=== PATIENT | male | born 1970 | race Caucasian/White ===

== ENCOUNTER 2017-09-10 18:19 | Emergency (ER) | payer OTHER ==
--- NOTE | 2017-09-10 18:46 | PDOC ---
Rapid Medical Evaluation Time Seen by Provider: 09/10/17 18:41 Medical Evaluation: Allergies Allergy/AdvReac Type Severity Reaction Status Date / Time No Known Allergies Allergy Verified 09/10/17 18:42 09/10/17 18:42 Pt with c/o: dental pain x 3-4 months, worsening in severity, no fever, motrin and tylenol alleviates pain but states does not have the money to pay for it Pt on brief exam:no visual decay/abscess. no excessive grinding pattern noted Pt ordered for: none Pt to proceed to the ED Discharge Disposition - Diagnosis Pain, dental - Referrals - Patient Instructions - Post Discharge Activity
[2017-09-10 18:51] VITALS: BP 122/69; PULSE 74; TEMP 99.1; BMI 26.9
[2017-09-10] MEDS ORDERED: KETOROLAC TROMETHAMINE 30 MG/1 ML VIAL IM ONE (19:33)
[2017-09-10] MEDS ORDERED: KETOROLAC TROMETHAMINE 30 MG/1 ML VIAL ONE (19:37)
--- NOTE | 2017-09-10 19:38 | PDOC ---
History of Present Illness - General Chief Complaint: Pain, Acute Stated Complaint: PAIN Time Seen by Provider: 09/10/17 18:41 History Source: Patient Exam Limitations: No Limitations - History of Present Illness Initial Comments: 09/10/17 19:31 46-year-old man with past medical history of schizoaffective disorder who presents to the emergency department with acute on chronic dental pain. Patient states she is seen a dentist many years ago but was scared off when told he was continued extensive dental surgery. Patient has been controlling his pain with [id number] Tylenol and Motrin with good relief. The pain now has become more intense and he states he cannot afford to pay for his Tylenol or Motrin [id number]. States the pain starts in teeth 2, 15,17 and 31. Past History - Past Medical History Allergies/Adverse Reactions: Allergies Allergy/AdvReac Type Severity Reaction Status Date / Time diphenhydramine Allergy Verified 09/10/17 18:42 [From Benadryl] haloperidol [From Haldol] Allergy Verified 09/10/17 18:42 Home Medications: Ambulatory Orders Atorvastatin Ca [Lipitor] 40 mg PO HS 09/10/17 Clozapine [Clozaril] 200 mg PO ASDIR 09/10/17 Divalproex [Depakote -] 1,000 mg PO DAILY 09/10/17 Hydroxyzine Pamoate [Vistaril -] 25 mg PO TID 09/10/17 Levothyroxine [Synthroid -] 75 mcg PO DAILY 09/10/17 Lisinopril 20 mg PO ASDIR 09/10/17 Metformin HCl 500 mg PO BID 09/10/17 Penicillin V Potassium [Pen Vee K -] 500 mg PO TID #21 tablet 09/10/17 Tramadol HCl [Ultram -] 50 mg PO Q6H PRN #8 tablet MDD 4 09/10/17 CVA: No COPD: No Diabetes: Yes (IDDM) HTN: Yes Hypercholesterolemia: Yes Psychiatric Problems: Yes (ANXIETY) Thyroid Disease: Yes (HYPOTHRDOISM) - Immunization History Immunization Up to Date: Yes - Suicide/Smoking/Psychosocial Hx Smoking History: Never smoked Number of Cigarettes Smoked Daily: 10 Information on smoking cessation initiated: No Hx Alcohol Use: No Drug/Substance Use Hx: No Substance Use Type: None Review of Systems - Review of Systems Able to Perform ROS?: Yes Is the patient limited Burmese proficient: No Constitutional: No: Symptoms Reported HEENTM: Yes: See HPI Respiratory: No: Symptoms reported Cardiac (ROS): No: Symptoms Reported ABD/GI: No: Symptoms Reported : No: Symptoms Reported Musculoskeletal: No: Symptoms Reported Integumentary: No: Symptoms Reported Neurological: No: Symptoms reported Psychiatric: No: Anxiety, Depression, Mood Swings, Change in Appetite Endocrine: No: Symptoms Reported Hematologic/Lymphatic: No: Symptoms Reported *Physical Exam - Vital Signs Last Vital Signs Temp Pulse Resp BP Pulse Ox 99.1 F 74 18 122/69 97 09/10/17 18:43 09/10/17 18:43 09/10/17 18:43 09/10/17 18:43 09/10/17 18:43 - Physical Exam General Appearance: Yes: Appropriately Dressed. No: Apparent Distress HEENT: positive: DARNELL, TMs Normal, Other (No obvious dental caries noted. Tenderness to the lingual side of teeth 2, 15, 17, 31. No abscesses palpated. No drainage or discharge noted with palpation of gingival surfaces. Gingiva pink with no sign of infection.) Neck: positive: Trachea midline, Supple Respiratory/Chest: positive: Lungs Clear. negative: Respiratory Distress, Accessory Muscle Use Cardiovascular: positive: Regular Rhythm, Regular Rate Gastrointestinal/Abdominal: positive: Soft. negative: Tender Musculoskeletal: positive: Normal Inspection Extremity: positive: Normal Inspection Integumentary: positive: Normal Color Neurologic: positive: Fully Oriented, Alert, Normal Mood/Affect, Normal Response Medical Decision Making - Medical Decision Making 09/10/17 19:36 A/P: 46-year-old man with history of schizoaffective disorder with acute exacerbation of chronic dental pain in teeth 2, 15, 17, 31. No obvious dental caries noted. Gingival without signs and symptoms of infection. Tenderness noted to the lingual surface of the gingiva on teeth noted. No abscess palpated. Toradol 30 modems I am now Prescription for Pen-Vee K Prescription for tramadol Referral to [facility] Discharge *DC/Admit/Observation/Transfer Diagnosis at time of Disposition: Pain, dental - Discharge Dispostion Disposition: HOME Condition at time of disposition: Stable Admit: No - Prescriptions Prescriptions: Penicillin V Potassium [Pen Vee K -] 500 mg PO TID #21 tablet Tramadol HCl [Ultram -] 50 mg PO Q6H PRN #8 tablet MDD 4 PRN Reason: Severe Pain - Referrals Referrals: ON STAFF,NOT [Primary Care Provider] - - Patient Instructions Additional Instructions: Take Pen-Vee K 500 mg 3 times a day for the next week or until discontinued by a dentist. Take tramadol 50 mg every 6 hours as needed for severe pain. Go to [facility] at [address] for dental clinic. Please bring proof of income they can adjust fee for service. Return to emergency department for worsening pain, foul taste in her mouth, facial swelling, inability, or any other concerns. Thank you very much for choosing us to provide your emergent healthcare needs. - Post Discharge Activity
== END 2017-09-10 19:47 | disposition home or self-care (01) ==
LOC: JERFT 18:19
PROC: 3E0233Z Introduction of Anti-inflammatory into Muscle, Percutaneous Approach (ICD-10-PCS; principal; 2017-09-10)
DX: K08.89 Other specified disorders of teeth and supporting structures (principal); I10 Essential (primary) hypertension; E11.9 Type 2 diabetes mellitus without complications; Z79.84 Long term (current) use of oral hypoglycemic drugs; E78.00 Pure hypercholesterolemia, unspecified; E03.9 Hypothyroidism, unspecified; F25.9 Schizoaffective disorder, unspecified; F41.9 Anxiety disorder, unspecified
CPT/HCPCS: 96372; 99281-25

== ENCOUNTER 2018-05-05 12:40 | Emergency (ER) | payer OTHER ==
[2018-05-05 12:47] VITALS: BP 114/78; PULSE 72; TEMP 99.3; BMI 24.1
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
--- NOTE | 2018-05-05 17:37 | CON.PSY ---
Psychiatry Consult Chief Complaint: 47 year old male with chronic Psych Illness, receives treatment at [facility]. In clozaril and other psych meds, Patient became homeless few days ago. Symptoms: reports: Anxiety - Previous Psychiatric Treatment Outpatient: Less than 6 mos ago Inpatient: 2 or more prior admissions - Previous Substance Abuse Treatment Outpatient: None Inpatient: None - Reason for Previous Treatment Reason for Previous Treatment: Psychotic Episode - Allergies Allergies: Allergies Allergy/AdvReac Type Severity Reaction Status Date / Time diphenhydramine Allergy Verified 05/05/18 12:44 [From Benadryl] haloperidol [From Haldol] Allergy Verified 05/05/18 12:44 - Current Living Status Usual Living Arrangement: Alone - Current Mental Status Evaluation Appearance: Disheveled Attitude: Guarded - Affect Affect: Constrictive Appropriateness: Appropriate to Content - Mood Mood: Anxious - Speech/Language Expressive: Coherent - Psychomotor Activity Psychomotor Activity: Slowed - Thought Process Thought Process: Intact - Thought Content Hallucinations: Absent Delusions: Absent - Self Perception Self Perception: No Impairment - Cognition Attention: Alert Orientation: Time Memory, Immediate Recall: Intact Memory, Short Term: 2/3 Memory, Remote with Promptin/3 - Concentration Serial Sevens Intact: Yes Simple Calculations Intact: Yes - Abstraction Proverb Interpretation: Intact Judgement: Minimally Impaired - Insight Insight: Intact - Impulse Control Impulse Control: Good Control - Suicidal Ideation Suicidal Ideation: No - Homicidal Ideation Homicidal Ideation: No Assessment/Plan 1) Dischrge from ER, Not suicidal or homicidal at this time. 2) follow up at [facility] in [place]. 3) will go to [facility].
== END 2018-05-05 17:47 | disposition home or self-care (01) ==
LOC: JER 12:40
DX: F25.9 Schizoaffective disorder, unspecified (principal); E11.9 Type 2 diabetes mellitus without complications; I10 Essential (primary) hypertension; F41.9 Anxiety disorder, unspecified; E03.9 Hypothyroidism, unspecified; E78.00 Pure hypercholesterolemia, unspecified
CPT/HCPCS: 99282-25

== ENCOUNTER 2019-08-01 12:43 | Inpatient (IN) | payer SELFPAY ==
[2019-08-01 13:35] VITALS: BMI 27.5
--- NOTE | 2019-08-01 14:52 | HP ---
"COWS - Scale Resting Pulse: 1= TN 81-100 Sweatin= Chills/Flushing Restless Observation: 1= Difficult to Sit Still Pupil Size: 0= Normal to Room Light Bone or Joint Aches: 1= Mild Discomfort Runny Nose/ Eye Tearin= Nasal Congestion GI Upset > 30mins: 1= Stomach Cramp Tremor Observation: 2= Slight Tremor Visible Yawning Observation: 2= >3x During Session Anxiety or Irritability: 1=Feels Anxious/Irritable Goose Flesh Skin: 3=Piloerection COWS Score: 14 CIWA Score Nausea/Vomitin Muscle Tremors: 4-Moderate,w/Arms Extend Anxiety: 4-Mod. Anxious/Guarded Agitation: 1-Slight > Activity Paroxysmal Sweats: 1-Minimal Palms Moist Orientation: 1-Uncertain about Date Tacttile Disturbances: 1-Very Mild Itch/Numbness Auditory Disturbances: 1-Very Mild Visual Disturbances: 1-Very Mild Sensitivity Headache: 2-Mild CIWA-Ar Total Score: 18 - Admission Criteria OASAS Guidelines: Admission for Medically Managed Detox: Requires at least one of the followin. CIWA greater than 12 2. Seizures within the past 24 hours 3. Delirium tremens within the past 24 hours 4. Hallucinations within the past 24 hours 5. Acute intervention needed for co occurring medical disorder 6. Acute intervention needed for co occurring psychiatric disorder 7. Severe withdrawal that cannot be handled at a lower level of care (continued vomiting, continued diarrhea, abnormal vital signs) requiring intravenous medication and/or fluids 8. Patient presents the following: CIWA greater than 12 Admission Criteria Met: Admission criteria met Admitting History and Physical - Admission History Source: Patient - Past Medical History Cardiovascular: Yes: HTN, Hyperlipdemia Psych: Yes: Addictions, Depression, Schizophrenia - Smoking History Smoking history: Current every day smoker Have you smoked in the past 12 months: Yes Aproximately how many cigarettes per day: 20 - Alcohol/Substance Use Hx Alcohol Use: Yes History of Substance Use: reports: Heroin - Social History Usual Living Arrangement: Yes: Alone, Other (jail) ADL: Support Services Admission ROS BHS - HPI Chief Complaint: I want to get this under control, get it all out of my system Allergies/Adverse Reactions: Allergies Allergy/AdvReac Type Severity Reaction Status Date / Time diphenhydramine Allergy Verified 08/01/19 13:19 [From Benadryl] haloperidol [From Haldol] Allergy Verified 08/01/19 13:19 History of Present Illness: 48 yo gentleman here for detox from opiates and alcohol - last time in detox was 2001. Denies seizures or overdose but does have history of black outs. States he has been using heroin for about a year - never on MMTP or suboxone. Patient lives in a jail. He sees psych, is on disability for schizoaffective disorder. Patient drinks starting in the morning or he gets very sick with withdrawal symptoms. No recent ED visits. He brings himself here on the recommendation of a friend. Longest time sober was 9 years - states he went to college and had a job - thought he was okay, stopped going to meetings and relapsed. [facility] Search Terms: elyse huang, 1970 Search Date: 08/01/2019 02:47:26 PM The Drug Utilization Report below displays all of the controlled substance prescriptions, if any, that your patient has filled in the last twelve months. The information displayed on this report is compiled from pharmacy submissions to the Department, and accurately reflects the information as submitted by the pharmacies. This report was requested by: Alysa Penny | Reference #: [id number] Others' Prescriptions Patient Name: Elyse Huang Date: 1970 Address: [address] [place] [address] [address] [place] [address] Sex: Male Rx Written Rx Dispensed Drug Quantity Days Supply Prescriber Name 07/07/2019 07/13/2019 zolpidem tartrate 5 mg tablet 30 30 , 06/12/2019 06/15/2019 zolpidem tartrate 5 mg tablet 30 30 , Patient Name: Elyse Huang Date: 1970 Address: [address] [place] [address] [address] [place] [address] Sex: Male Rx Written Rx Dispensed Drug Quantity Days Supply Prescriber Name 05/12/2019 05/18/2019 zolpidem tartrate 5 mg tablet 30 30 , La04/14/2019 04/16/2019 zolpidem tartrate 5 mg tablet 30 30 , Exam Limitations: No Limitations - Ebola screening Have you traveled outside of the country in the last 21 days: No (N) Have you had contact with anyone from an Ebola affected area: No Do you have a fever: No - Review of Systems Constitutional: Malaise, Changes in sleep, Weakness EENT: reports: Nose Congestion Respiratory: reports: No Symptoms reported Cardiac: reports: No Symptoms Reported GI: reports: Nausea, Abdominal cramping : reports: No Symptoms Reported Musculoskeletal: reports: Back Pain, Muscle Pain Integumentary: reports: No Symptoms Reported Neuro: reports: Headache, Tremors, Weakness Endocrine: reports: No Symptoms Reported Hematology: reports: No Symptoms Reported Psychiatric: reports: Judgement Intact, Mood/Affect Appropiate, Orientated x3, Anxious Other Systems: Reviewed and Negative Patient History - Patient Medical History Hx Asthma: No Hx Chronic Obstructive Pulmonary Disease (COPD): No Hx Cancer: No Hx Cardiac Disorders: No Hx Hypertension: Yes Hx Hypercholesterolemia: Yes Hx Pacemaker: No HX Cerebrovascular Accident: No Hx Seizures: No Hx Diabetes: Yes (type II) Hx Gastrointestinal Disorders: Yes (GERD) Hx Liver Disease: No Hx Genitourinary Disorders: No Hx Sexually Transmitted Disorders: No Hx Renal Disease (ESRD): No Hx Thyroid Disease: Yes (HYPOTHRDOISM) Hx Human Immunodeficiency Virus (HIV): No Hx Hepatitis C: No Hx Depression: Yes Hx Suicide Attempt: No (denies) Hx Bipolar Disorder: No Hx Schizophrenia: Yes (schizoaffective - hx meds - in ED several times, multiple hospitalizations) - Patient Surgical History Past Surgical History: No - PPD History Previous Implant?: Yes Documented Results: Negative w/o proof Implanted On Prior R Admission?: No PPD to be Administered?: Yes - Reproductive History Patient is a Female of Child Bearing Age (11 -55 yrs old): No - Smoking Cessation Smoking history: Current every day smoker Have you smoked in the past 12 months: Yes Aproximately how many cigarettes per day: 20 Hx Chewing Tobacco Use: No Initiated information on smoking cessation: Yes 'Breaking Loose' booklet given: 08/01/19 (give on floor) - Substance & Tx. History Hx Alcohol Use: Yes Hx Substance Use: Yes Substance Use Type: Alcohol Hx Substance Use Treatment: Yes (detox) - Substances abused Alcohol Substance route: Oral Frequency: Daily Amount used: 6-7 (25ounce) beer Age of first use: 16 Date of last use: 08/01/19 Heroin Substance route: Inhalation Frequency: 3-6 times per week Amount used: 4 bags/daily ($10 bag) Age of first use: 31 Date of last use: 07/31/19 Admission Physical Exam [facility] - Vital Signs Vital Signs: Vital Signs - 24 hr 08/01/19 13:26 Temperature 98 F Pulse Rate 87 Respiratory 18 Rate Blood Pressure 129/80 - Physical General Appearance: Yes: Nourished, Appropriately Dressed, Moderate Distress, Tremorous, Anxious HEENTM: Yes: EOMI, Hearing grossly Normal, Normocephalic, Normal Voice, Pharynx Normal, Other (missing front toothd) Respiratory: Yes: Normal Breath Sounds, No Respiratory Distress Neck: Yes: No masses,lesions,Nodules, Supple Breast: Yes: Breasts Symetrical Cardiology: Yes: Regular Rhythm, Regular Rate Abdominal: Yes: Flat, Soft Genitourinary: Yes: Within Normal Limits Back: Yes: Normal Inspection Musculoskeletal: Yes: full range of Motion, Gait Steady, Back pain, Muscle Pain Extremities: Yes: Normal Inspection, Normal Range of Motion, Non-Tender Neurological: Yes: Fully Oriented, Alert, Motor Strength 5/5, Normal Mood/Affect , Normal Response Integumentary: Yes: Normal Color, Warm Lymphatic: Yes: Within Normal Limits - Diagnostic (1) Alcohol dependence with withdrawal, uncomplicated Current Visit: Yes Status: Chronic (2) Opioid dependence with withdrawal Current Visit: Yes Status: Chronic (3) Nicotine dependence Current Visit: Yes Status: Chronic Qualifiers: Nicotine product type: cigarettes Substance use status: uncomplicated Qualified Code(s): F17.210 - Nicotine dependence, cigarettes, uncomplicated (4) Diabetes mellitus treated with oral medication Current Visit: Yes Status: Chronic (5) HTN (hypertension) Current Visit: Yes Status: Chronic Qualifiers: Hypertension type: essential hypertension Qualified Code(s): I10 - Essential (primary) hypertension (6) Hypothyroid Current Visit: Yes Status: Acute Qualifiers: Hypothyroidism type: acquired Qualified Code(s): E03.9 - Hypothyroidism, unspecified (7) Hyperlipemia Current Visit: Yes Status: Acute Qualifiers: Hyperlipidemia type: unspecified Qualified Code(s): E78.5 - Hyperlipidemia , unspecified Cleared for Admission [facility] - Detox or Rehab [facility] Level of Care: Medically Managed Detox Regimen/Protocol: Ativan, Methadone Inpatient Rehab Admission - Rehab Decision to Admit Inpatient rehab admission?: No"
[2019-08-01] MEDS ORDERED: ACETAMINOPHEN 325 MG TABLET (FP) PO PRN ×2 (15:00)
[2019-08-01] MEDS ORDERED: LORazepam 1 MG TABLET PO PRN (15:00)
[2019-08-01] MEDS ORDERED: MAG HYDROX/AL HYDROX/SIMETH 30 ML UNIT-DOSE CUP PO PRN (15:00)
[2019-08-01] MEDS ORDERED: cloNIDine HCL 0.1 MG TABLET PO PRN (15:00)
[2019-08-01] MEDS ORDERED: METHOCARBAMOL 500 MG TABLET PO PRN (15:00)
[2019-08-01] MEDS ORDERED: MAGNESIUM CITRATE 300 ML BOTTLE PO PRN (15:00)
[2019-08-01] MEDS ORDERED: IBUPROFEN 400 MG TABLET (FP) PO PRN (15:00)
[2019-08-01] MEDS ORDERED: LORazepam 2 MG TABLET PO ONE (15:00)
[2019-08-01] MEDS ORDERED: BISMUTH SUBSALICYLATE 524 MG/30 ML UD PO PRN (15:00)
[2019-08-01] MEDS ORDERED: MENTHOL/PHENOL 1 EACH UD MM PRN (15:00)
[2019-08-01] MEDS ORDERED: MAGNESIUM HYDROX 2400MG/30ML ORAL SUSPENSION 30 ML CUP PO PRN (15:00)
[2019-08-01] MEDS ORDERED: METHADONE HCL 10 MG TABLET (FOR DETOX USE ONLY) PO ONE (16:45)
[2019-08-01] MEDS: LISINOPRIL 20 MG TABLET (FP) PO SCH (17:08)
[2019-08-01] MEDS: LORazepam 2 MG TABLET PO SCH ×2 (17:08→22:13)
[2019-08-01] MEDS: NICOTINE 21 MG/24 HOURS TOPICAL PATCH TD SCH (18:20)
[2019-08-01] MEDS ORDERED: MELATONIN 5 MG TABLETS PO PRN (22:00)
[2019-08-01] MEDS ORDERED: DIVALPROEX SODIUM 500 MG TABLET E.C. PO ONE (22:00)
[2019-08-01] MEDS ORDERED: cloZAPine 25 MG TABLET PO ONE (22:00)
[2019-08-01] MEDS: LEVOTHYROXINE NA 25 MCG TABLET (FP) PO SCH (22:13)
[2019-08-01] MEDS: THIAMINE HCL 100 MG TABLET (FP) PO SCH (22:13)
[2019-08-01] MEDS: ATORVASTATIN CA 40 MG TABLET (FP) PO SCH (22:13)
[2019-08-02] MEDS: LORazepam 2 MG TABLET PO SCH ×4 (06:49→22:21)
[2019-08-02] MEDS: metFORMIN HCL 500 MG TABLET (FP) PO SCH ×2 (06:51→18:25)
[2019-08-02] MEDS ORDERED: METHADONE HCL 5 MG TABLET (FOR DETOX USE ONLY) PO ONE (10:00)
[2019-08-02 10:41] LABS: HEMATOCRIT 42.5 % (35.4-49); HEMOGLOBIN 14.3 GM/dL (11.7-16.9); MCH 31.1 pg (25.7-33.7); MCHC 33.8 g/dl (32.0-35.9); MEAN PLT VOLUME 8.9 fl (7.5-11.1); PLATELET COUNT 210 K/MM3 (134-434); RBC 4.61 M/mm3 (4.00-5.60); RDW 14.3 % (11.9-15.9)
[2019-08-02 10:52] LABS: ALBUMIN 3.7 g/dl (3.4-5.0); BILIRUBIN,TOTAL 0.4 mg/dL (0.2-1); BLOOD UREA NITROGEN 10.7 mg/dL (7-18); CALCIUM 8.4 mg/dL (8.5-10.1); CREATININE 0.7 mg/dL (0.55-1.3); POTASSIUM 3.8 mmol/L (3.5-5.1); TOT PROT 6.5 g/dl (6.4-8.2)
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
--- NOTE | 2019-08-02 10:58 | PN ---
S CIWA - CIWA Score Nausea/Vomitin-No Nausea/No Vomiting Muscle Tremors: 2 Anxiety: 3 Agitation: 0-Normal Activity Paroxysmal Sweats: 3 Orientation: 0-Oriented Tacttile Disturbances: 1-Very Mild Itch/Numbness Auditory Disturbances: 0-None Visual Disturbances: 0-None Headache: 2-Mild CIWA-Ar Total Score: 11 BHS COWS - Scale Resting Pulse: 0= CA 80 or Below Sweatin= Beads of Sweat on Face Restless Observation: 1= Difficult to Sit Still Pupil Size: 0= Normal to Room Light Bone or Joint Aches: 2= Severe Diffuse Aches Runny Nose/ Eye Tearin= None GI Upset > 30mins: 0= None Tremor Observation of Outstretched Hands: 2= Slight Tremor Visible Yawning Observation: 1= 1-2x During Session Anxiety or Irritability: 2=Irritable/Anxious Goose Flesh Skin: 0=Smooth Skin COWS Score: 11 S Progress Note (SOAP) Subjective: c/o anxiety, sweats, muscle aches, headache, and shakes. Objective: 08/02/19 10:56 Vital Signs 08/02/19 08/02/19 08/02/19 03:30 05:53 09:49 Temperature 98.2 F 98 F Pulse Rate 61 79 Respiratory 18 18 16 Rate Blood Pressure 102/59 L 122/76 Laboratory Last Values WBC 9.0 K/mm3 (4.0-10.0) 08/02/19 07:35 RBC 4.61 M/mm3 (4.00-5.60) 08/02/19 07:35 Hgb 14.3 GM/dL (11.7-16.9) 08/02/19 07:35 Hct 42.5 % (35.4-49) 08/02/19 07:35 MCV 92.0 fl (80-96) 08/02/19 07:35 MCH 31.1 pg (25.7-33.7) 08/02/19 07:35 MCHC 33.8 g/dl (32.0-35.9) 08/02/19 07:35 RDW 14.3 % (11.9-15.9) 08/02/19 07:35 Plt Count 210 K/MM3 (134-434) 08/02/19 07:35 MPV 8.9 fl (7.5-11.1) 08/02/19 07:35 Sodium 141 mmol/L (136-145) 08/02/19 07:35 Potassium 3.8 mmol/L (3.5-5.1) 08/02/19 07:35 Chloride 106 mmol/L (98-107) 08/02/19 07:35 Carbon Dioxide 31 mmol/L (21-32) 08/02/19 07:35 Anion Gap 4 MMOL/L (8-16) L 08/02/19 07:35 BUN 10.7 mg/dL (7-18) 08/02/19 07:35 Creatinine 0.7 mg/dL (0.55-1.3) 08/02/19 07:35 Est GFR (CKD-EPI)AfAm 131.17 08/02/19 07:35 Est GFR (CKD-EPI)NonAf 113.17 08/02/19 07:35 POC Glucometer 116 UNITS (80-120) 08/02/19 06:44 Random Glucose 115 mg/dL (74-106) H 08/02/19 07:35 Calcium 8.4 mg/dL (8.5-10.1) L 08/02/19 07:35 Total Bilirubin 0.4 mg/dL (0.2-1) 08/02/19 07:35 AST 18 U/L (15-37) 08/02/19 07:35 ALT 24 U/L (13-61) 08/02/19 07:35 Alkaline Phosphatase 61 U/L (45-117) 08/02/19 07:35 Total Protein 6.5 g/dl (6.4-8.2) 08/02/19 07:35 Albumin 3.7 g/dl (3.4-5.0) 08/02/19 07:35 Labs noted. Assessment: 08/02/19 10:57 AOX3, in no acute respiratory distress. Full ROM, ambulating in the unit. Withdrawal symptoms Plan: continue detox.
[2019-08-02] MEDS ORDERED: PNEUMOCOCCAL 23 VACCINE 0.5 ML VIAL IM ONE (12:00)
[2019-08-02] MEDS ORDERED: PNEUMOC 13-VAL CONJ-DIP CRM/PF 0.5 ML DISP.SYRIN IM ONE (12:00)
[2019-08-02] MEDS: LEVOTHYROXINE NA 25 MCG TABLET (FP) PO SCH (12:16)
[2019-08-02] MEDS: LISINOPRIL 20 MG TABLET (FP) PO SCH (12:17)
[2019-08-02] MEDS: PRENATAL VITAMINS W/ FOLIC ACID TABLET (FP) PO SCH (12:17)
[2019-08-02] MEDS: NICOTINE 21 MG/24 HOURS TOPICAL PATCH TD SCH (12:17)
--- NOTE | 2019-08-02 18:45 | EKG ---
Test Reason : Blood Pressure : / mmHG Vent. Rate : 075 BPM Atrial Rate : 075 BPM P-R Int : 136 ms QRS Dur : 094 ms QT Int : 368 ms P-R-T Axes : 071 038 051 degrees QTc Int : 410 ms NORMAL SINUS RHYTHM WITH SINUS ARRHYTHMIA NORMAL ECG WHEN COMPARED WITH ECG OF 27-JUN-2003 18:35, NO SIGNIFICANT CHANGE WAS FOUND Confirmed by GOVIND YI MD ([id number]) on 08/02/2019 6:45:38 PM Referred By: ROMEO MÉNDEZ Confirmed By:GOVIND YI MD
[2019-08-02] MEDS ORDERED: DIVALPROEX NA *ER* EXTEND REL 500 MG TABLET.SA (FP) PO SCH (22:00)
[2019-08-02] MEDS: THIAMINE HCL 100 MG TABLET (FP) PO SCH (22:21)
[2019-08-02] MEDS: ATORVASTATIN CA 40 MG TABLET (FP) PO SCH (22:21)
[2019-08-03] MEDS: metFORMIN HCL 500 MG TABLET (FP) PO SCH ×2 (06:12→16:55)
[2019-08-03] MEDS: LORazepam 1 MG TABLET PO SCH ×3 (06:13→16:55)
[2019-08-03] MEDS: LEVOTHYROXINE NA 25 MCG TABLET (FP) PO SCH (06:26)
[2019-08-03] MEDS ORDERED: METHADONE HCL 10 MG TABLET (FOR DETOX USE ONLY) PO ONE (10:00)
[2019-08-03] MEDS: PRENATAL VITAMINS W/ FOLIC ACID TABLET (FP) PO SCH (11:00)
[2019-08-03] MEDS: NICOTINE 21 MG/24 HOURS TOPICAL PATCH TD SCH (11:00)
[2019-08-03] MEDS: LISINOPRIL 20 MG TABLET (FP) PO SCH (11:00)
--- NOTE | 2019-08-03 15:03 | PN ---
[facility] Progress Note Note: Patient with history of Schizoaffective Disorder on Depakote ER 1000 mg/hs and Clozaril 200 mg/hs. Depakote 1000 mg/hs was ordered. Dr Voss, patient's outpatient psychiatrist at [facility] in [place] was [phone]. She told automobile service writer that saw patient on Saturday07/24/19 after he reported losing his medications. She said that she gave patient script for a weekend supply and return appointment today. She was not aware of patient admission to detox and did not expect it. She understand that patient will not receive Clozaril while in detox but requests that a CBC be ordered
[2019-08-03 16:56] VITALS: BP 113/65; PULSE 60; TEMP 98.4
--- NOTE | 2019-08-03 19:24 | DS ---
[facility] Detox Discharge Summary Admission Date: 08/01/19 Discharge Date: 08/03/19 - History Present History: Alcohol Dependence, Opioid Dependence Pertinent Past History: Pt leaving AMA- says he wants to leave today and stay at halfway. Says he needs to be with his family for mallorie- as he will get depressed. 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 Voss-pt says he some medications Clozaril and Depakote and will see MH doc soon. - Physical Exam Results Vital Signs: Vital Signs Temperature 98.4 F 08/03/19 16:55 Pulse Rate 60 08/03/19 16:55 Respiratory Rate 18 08/03/19 16:55 Blood Pressure 113/65 08/03/19 16:55 O2 Sat by Pulse Oximetry (%) - Medication Discharge Medications: Ambulatory Orders Atorvastatin Ca [Lipitor] 40 mg PO HS 09/10/17 Clozapine [Clozaril] 200 mg PO HS 09/10/17 Divalproex [Depakote -] 500 mg PO BID 09/10/17 Levothyroxine [Synthroid -] 75 mcg PO DAILY 09/10/17 Lisinopril 20 mg PO DAILY 09/10/17 metFORMIN HCL [Metformin HCl] 500 mg PO BID 09/10/17 Zolpidem Tartrate [Ambien] 5 mg PO HS 08/01/19 - AMA Did Patient Leave Against Medical Advice: Yes
[2019-08-04] MEDS ORDERED: LORazepam 0.5 MG TABLET PO PRN
[2019-08-04] MEDS ORDERED: LORazepam 0.5 MG TABLET PO SCH (05:00)
[2019-08-04] MEDS ORDERED: METHADONE HCL 5 MG TABLET (FOR DETOX USE ONLY) PO ONE (06:00)
[2019-08-05] MEDS ORDERED: LORazepam 0.5 MG TABLET PO ONE (05:00)
== END 2019-08-03 19:36 | disposition left against medical advice (07) | DRG 770 ==
LOC: YASAS 12:43 → Y6N 15:44
PROVIDERS: ADMIT Allergy & Immunology; ATTEND Allergy & Immunology
PROC: HZ2ZZZZ Detoxification Services for Substance Abuse Treatment (ICD-10-PCS; principal; 2019-08-01)
DX: F11.23 Opioid dependence with withdrawal (principal); F10.230 Alcohol dependence with withdrawal, uncomplicated; F17.210 Nicotine dependence, cigarettes, uncomplicated; F25.9 Schizoaffective disorder, unspecified; I10 Essential (primary) hypertension; E11.9 Type 2 diabetes mellitus without complications; E03.9 Hypothyroidism, unspecified; E78.5 Hyperlipidemia, unspecified; K21.9 Gastro-esophageal reflux disease without esophagitis; Z88.8 Allergy status to other drugs, medicaments and biological substances; Z79.84 Long term (current) use of oral hypoglycemic drugs
CPT/HCPCS: 36415; 80053; 80164; 82962; 85027; 86593; 87389; 90732; 93005; 93010; G0009

== ENCOUNTER 2020-05-04 18:58 | Emergency (ER) | payer SELFPAY ==
--- NOTE | 2020-05-04 19:04 | PDOC ---
Rapid Medical Evaluation Time Seen by Provider: 05/04/20 19:02 Medical Evaluation: Allergies Allergy/AdvReac Type Severity Reaction Status Date / Time diphenhydramine Allergy Verified 08/01/19 13:19 [From Benadryl] haloperidol [From Haldol] Allergy Verified 08/01/19 13:19 05/04/20 19:02 49 y/o M with L knee pain x6 days ago PE: Ambulated without gross sensory or motor deficits ORDERS: X-ray Discharge Disposition - Diagnosis Knee pain - Referrals - Patient Instructions - Post Discharge Activity
[2020-05-04 19:06] VITALS: BP 122/76; PULSE 95; TEMP 98.1; BMI 30.4
[2020-05-04] MEDS ORDERED: KETOROLAC TROMETHAMINE 30 MG/1 ML VIAL IM ONE (19:55)
--- NOTE | 2020-05-04 19:55 | PDOC ---
History of Present Illness - General Chief Complaint: Pain, Acute Stated Complaint: KNEE PAIN Time Seen by Provider: 05/04/20 19:02 History Source: Patient Exam Limitations: No Limitations - History of Present Illness Initial Comments: 05/04/20 19:49 Patient is a 49-year-old male with history of hypothyroid, HDL, HTN, DM, schizoaffective disorder, here with complaints of left knee pain x1 week status post twisting injury. Initially had no pain but as the days progressed pain got worse now 6/10 sharp intermittent and worse with squatting. Denies any nausea, vomiting. PMD: Dr. Carlos PMHX: as above PSOCHX: ALL: Benadryl, Haldol GENERAL/CONSTITUTIONAL: [No fever or chills. No weakness. No weight change.] HEAD, EYES, EARS, NOSE AND THROAT: [No change in vision. No ear pain or discharge. No sore throat.] GENITOURINARY: [No dysuria, frequency, or change in urination.] MUSCULOSKELETAL: [No joint or muscle swelling or pain. No neck or back pain.] SKIN AND BREASTS: [No rash or easy bruising.] NEUROLOGIC: [No headache, vertigo, loss of consciousness, or loss of sensation.] PSYCHIATRIC: (+) depression or anxiety.] ENDOCRINE: [No increased thirst. No abnormal weight change.] HEMATOLOGIC/LYMPHATIC: [No anemia, easy bleeding, or history of blood clots.] ALLERGIC/IMMUNOLOGIC: [No hives or skin allergy. No latex allergy.] GENERAL: [The patient is awake, alert, and fully oriented, in no acute distress.] HEAD: [Normal with no signs of trauma.] EYES: [Pupils equal, round and reactive to light, extraocular movements intact, sclera anicteric, conjunctival NECK: [Normal range of motion, supple without lymphadenopathy, JVD, or masses.] EXTREMITIES: [Decreased range of motion to left leg, no edema. No clubbing or cyanosis. No cords, erythema, or tenderness.] NEUROLOGICAL: [Cranial nerves II through XII grossly intact. Normal speech, normal gait.] PSYCH: [Normal mood, normal affect.] SKIN: [Warm, Dry, normal turgor, no rashes or lesions noted.] Past History - Medical History Allergies/Adverse Reactions: Allergies Allergy/AdvReac Type Severity Reaction Status Date / Time diphenhydramine Allergy Verified 08/01/19 13:19 [From Benadryl] haloperidol [From Haldol] Allergy Verified 08/01/19 13:19 Home Medications: Ambulatory Orders Atorvastatin Ca [Lipitor] 40 mg PO HS 09/10/17 Clozapine [Clozaril] 200 mg PO HS 09/10/17 Divalproex [Depakote -] 500 mg PO BID 09/10/17 Levothyroxine [Synthroid -] 75 mcg PO DAILY 09/10/17 Lisinopril 20 mg PO DAILY 09/10/17 metFORMIN HCL [Metformin HCl] 500 mg PO BID 09/10/17 Zolpidem Tartrate [Ambien] 5 mg PO HS 08/01/19 Asthma: No Cancer: No Cardiac Disorders: No CVA: No COPD: No Diabetes: Yes (2007) GI Disorders: No Disorders: No HTN: Yes Hypercholesterolemia: Yes Kidney Stones: No Liver Disease: No Psychiatric Problems: Yes (ANXIETY) Seizures: No Thyroid Disease: Yes (HYPOTHRDOISM) - Surgical History Abdominal Surgery: No Appendectomy: No Cardiac Surgery: No Cholecystectomy: No Lung Surgery: No Neurologic Surgery: No Orthopedic Surgery: No - Reproductive History Testicular Surgery: No - Immunization History Immunization Up to Date: Yes - Psycho-Social/Smoking History Smoking History: Never smoked Have you smoked in the past 12 months: No Number of Cigarettes Smoked Daily: 20 Information on smoking cessation initiated: No 'Breaking Loose' booklet given: 08/01/19 (give on floor) - Substance Abuse Hx (Audit-C & DAST Scrn) How often the patient has a drink containing alcohol: Never Score: In Men: 4 or > Positive; In Women: 3 or > Positive: 0 Screen Result (Pos requires Nsg. Audit-10AR): Negative In the last yr the pt used illegal drug/Rx for NonMed reason: No Score: Yes response is considered Positive: 0 Screen Result (Positive result requires Nsg. DAST-10): Negative *Physical Exam - Vital Signs Last Vital Signs Temp Pulse Resp BP Pulse Ox 98.1 F 95 H 16 122/76 99 05/04/20 19:03 05/04/20 19:03 05/04/20 19:03 05/04/20 19:03 05/04/20 19:03 Medical Decision Making - Medical Decision Making 05/04/20 19:49 Patient is a 49-year-old male with history of hypothyroid, HDL, HTN, DM, schizoaffective disorder, here with complaints of left knee pain x1 week status post twisting injury. Initially had no pain but as the days progressed pain got worse now 6/10 sharp intermittent and worse with squatting. Denies any nausea, vomiting. Symptoms consistent with internal derangement of the knee possible meniscal tear. X-ray ordered noted to be negative for any acute pathology. Toradol 30 mg IM for pain We will discharge patient with follow-up to orthopedist I discussed the physical exam findings, ancillary test results and final diagnoses with the patient. I answered all of the patient's questions. The patient was satisfied with the care received and felt comfortable with the discharge plan and treatment plan. The Patient agrees to follow up with the primary care physician within 24-72 hours. Discharge - Discharge Information Problems reviewed: Yes Clinical Impression/Diagnosis: Knee pain Qualifiers: Chronicity: acute Laterality: left Qualified Code(s): M25.562 - Pain in left knee Condition: Stable Disposition: HOME - Follow up/Referral Referrals: Esther Carlos MD [Primary Care Provider] - Jluis Bolden MD [Staff Physician] - - Patient Discharge Instructions Patient Printed Discharge Instructions: DI for Knee Sprain Additional Instructions: Your Discharge Instructions: You must call primary care physician within 24 hours to arrange follow-up. Return to the Emergency Department with any new, persistent or worsening symptoms, for fever, chills, SOB, dizziness or any other concerning changes that may occur. Follow-up with the orthopedist within 12 to 24 hours. - Post Discharge Activity
[2020-05-04] MEDS ORDERED: KETOROLAC TROMETHAMINE 30 MG/1 ML VIAL ONE (19:58)
== END 2020-05-04 20:13 | disposition home or self-care (01) ==
LOC: JERFT 18:58
PROC: 3E0233Z Introduction of Anti-inflammatory into Muscle, Percutaneous Approach (ICD-10-PCS; principal; 2020-05-04)
DX: M25.562 Pain in left knee (principal)
CPT/HCPCS: 73562-TC-LT-FY; 99284-25

== ENCOUNTER 2022-10-20 19:19 | Inpatient (IN) | payer OTHER ==
[2022-10-20 20:49] VITALS: BMI 26.9
[2022-10-21] MEDS ORDERED: POLYETHYLENE GLYCOL (HEALTHYLAX) 3350 17 GM PACKET PO PRN (14:48)
[2022-10-21] MEDS ORDERED: IBUPROFEN 400 MG TABLET (FP) PO PRN (14:48)
[2022-10-21] MEDS ORDERED: guaiFENesin 200 MG/10 ML 10 ML UNIT-DOSE CUPS PO PRN (14:48)
[2022-10-21] MEDS ORDERED: P-EPHED 60MG/TRIPROLIDI 2.5MG TABLET PO PRN (14:48)
[2022-10-21] MEDS ORDERED: LOPERAMIDE HCL 2 MG CAPSULE PO PRN (14:48)
[2022-10-21] MEDS ORDERED: ACETAMINOPHEN 325 MG TABLET (FP) PO PRN (14:48)
[2022-10-21] MEDS ORDERED: BENZOCAINE/MENTHOL (CHLORASEPTIC ) LOZENGE MM PRN (14:48)
[2022-10-21] MEDS ORDERED: MAGNESIUM HYDROX 2400MG/30ML ORAL SUSPENSION 30 ML CUP PO PRN (14:48)
[2022-10-21] MEDS ORDERED: NICOTINE 10 MG CARTRIDGE (INHALER) IH PRN (14:48)
[2022-10-21] MEDS ORDERED: TUBERCULIN PPD 5 TU/0.1ML VIAL ID ONE (15:46)
[2022-10-21] MEDS: THIAMINE HCL 100 MG TABLET (FP) PO SCH (21:51)
[2022-10-21] MEDS: MELATONIN 5 MG TABLETS PO SCH (21:51)
[2022-10-22] MEDS: PRENATAL VITAMINS W/ FOLIC ACID TABLET (FP) PO SCH (10:13)
[2022-10-22] MEDS: NICOTINE 7 MG/24 HOURS TOPICAL PATCH TD SCH (10:14)
[2022-10-22 14:07] LABS: HEMOGLOBIN 14.8 GM/dL (11.7-16.9); MCH 28.5 pg (25.7-33.7); MCHC 32.8 g/dl (32.0-35.9); MEAN PLT VOLUME 8.9 fl (7.5-11.1); RBC 5.17 M/mm3 (4.00-5.60); RDW 14.5 % (11.9-15.9); WHITE BLOOD COUNT 6.7 K/mm3 (4.0-10.0)
[2022-10-22 14:38] LABS: PLATELET COUNT 162 10^3/uL (134-434)
[2022-10-22 15:11] LABS: ALBUMIN 3.9 g/dl (3.4-5.0)
[2022-10-22 15:14] LABS: BLOOD UREA NITROGEN 7.8 mg/dL (7-18); CALCIUM 9.4 mg/dL (8.5-10.1)
[2022-10-22 15:15] LABS: BILIRUBIN,TOTAL 0.6 mg/dL (0.2-1); TOT PROT 7.1 g/dl (6.4-8.2)
[2022-10-22 19:49] LABS: PH,URINE 7.5 (5.0-8.0); URINE APPEARANCE CLEAR; URINE BILIRUBIN NEGATIVE (NEGATIVE); URINE COLOR YELLOW; URINE GLUCOSE (UA) NEGATIVE (NEGATIVE); URINE KETONE NEGATIVE (NEGATIVE); URINE LEUK ESTERASE NEGATIVE (NEGATIVE); URINE NITRITE NEGATIVE (NEGATIVE); URINE PROTEIN NEGATIVE (NEGATIVE); URINE UROBILINOGEN 0.2 mg/dL (0.2-1.0)
[2022-10-22] MEDS: MELATONIN 5 MG TABLETS PO SCH (22:00)
[2022-10-22] MEDS: hydrOXYzine PAMOATE 25 MG CAPSULE (FP) PO PRN (22:00)
[2022-10-22] MEDS: THIAMINE HCL 100 MG TABLET (FP) PO SCH (22:00)
[2022-10-23] MEDS: hydrOXYzine PAMOATE 25 MG CAPSULE (FP) PO PRN ×2 (09:48→22:07)
[2022-10-23] MEDS: PRENATAL VITAMINS W/ FOLIC ACID TABLET (FP) PO SCH (09:49)
[2022-10-23] MEDS: NICOTINE 7 MG/24 HOURS TOPICAL PATCH TD SCH (09:49)
[2022-10-23 12:15] LABS: HIV INTERPRETATION NEGATIVE (NEGATIVE)
[2022-10-23] MEDS ORDERED: LEVOTHYROXINE NA 25 MCG TABLET (FP) PO SCH (14:30)
[2022-10-23] MEDS: metFORMIN HCL 500 MG TABLET (FP) PO SCH (16:54)
[2022-10-23] MEDS: THIAMINE HCL 100 MG TABLET (FP) PO SCH (22:07)
[2022-10-23] MEDS: MELATONIN 5 MG TABLETS PO SCH (22:07)
[2022-10-23] MEDS: ATORVASTATIN CA 40 MG TABLET (FP) PO SCH (22:07)
[2022-10-23] MEDS: CARBAMIDE PEROXIDE 6.5% OTIC 15 ML BOTTLE AU PRN (22:08)
[2022-10-24] MEDS: metFORMIN HCL 500 MG TABLET (FP) PO SCH ×2 (07:15→16:58)
[2022-10-24] MEDS: LEVOTHYROXINE NA 25 MCG TABLET (FP) PO SCH (07:15)
[2022-10-24] MEDS: LISINOPRIL 20 MG TABLET PO SCH (09:56)
[2022-10-24] MEDS: hydrOXYzine PAMOATE 25 MG CAPSULE (FP) PO PRN ×2 (09:57→21:52)
[2022-10-24] MEDS: PRENATAL VITAMINS W/ FOLIC ACID TABLET (FP) PO SCH (09:57)
[2022-10-24] MEDS: NICOTINE 7 MG/24 HOURS TOPICAL PATCH TD SCH (09:57)
[2022-10-24] MEDS: THIAMINE HCL 100 MG TABLET (FP) PO SCH (21:52)
[2022-10-24] MEDS: ATORVASTATIN CA 40 MG TABLET (FP) PO SCH (21:52)
[2022-10-24] MEDS: MELATONIN 5 MG TABLETS PO SCH (21:52)
[2022-10-24] MEDS: CARBAMIDE PEROXIDE 6.5% OTIC 15 ML BOTTLE AU PRN (21:53)
[2022-10-25] MEDS: LEVOTHYROXINE NA 25 MCG TABLET (FP) PO SCH (07:40)
[2022-10-25] MEDS: metFORMIN HCL 500 MG TABLET (FP) PO SCH ×2 (07:44→16:55)
[2022-10-25] MEDS: PRENATAL VITAMINS W/ FOLIC ACID TABLET (FP) PO SCH (10:10)
[2022-10-25] MEDS: LISINOPRIL 20 MG TABLET PO SCH (10:10)
[2022-10-25] MEDS: NICOTINE 7 MG/24 HOURS TOPICAL PATCH TD SCH (10:10)
[2022-10-25] MEDS: THIAMINE HCL 100 MG TABLET (FP) PO SCH (21:36)
[2022-10-25] MEDS: MELATONIN 5 MG TABLETS PO SCH (21:36)
[2022-10-25] MEDS: ATORVASTATIN CA 40 MG TABLET (FP) PO SCH (21:36)
[2022-10-25] MEDS: hydrOXYzine PAMOATE 25 MG CAPSULE (FP) PO PRN (21:37)
[2022-10-25] MEDS: MAG HYDROX/AL HYDROX/SIMETH 30 ML UNIT-DOSE CUP PO PRN (22:52)
[2022-10-26] MEDS: LEVOTHYROXINE NA 25 MCG TABLET (FP) PO SCH (06:50)
[2022-10-26] MEDS: metFORMIN HCL 500 MG TABLET (FP) PO SCH ×2 (06:50→16:55)
[2022-10-26] MEDS: LISINOPRIL 20 MG TABLET PO SCH (09:37)
[2022-10-26] MEDS: PRENATAL VITAMINS W/ FOLIC ACID TABLET (FP) PO SCH (09:39)
[2022-10-26] MEDS: NICOTINE 7 MG/24 HOURS TOPICAL PATCH TD SCH (09:39)
[2022-10-26] MEDS: DIVALPROEX SODIUM 500 MG TABLET E.C. PO SCH (21:17)
[2022-10-26] MEDS: ATORVASTATIN CA 40 MG TABLET (FP) PO SCH (21:17)
[2022-10-26] MEDS: THIAMINE HCL 100 MG TABLET (FP) PO SCH (21:17)
[2022-10-26] MEDS: MELATONIN 5 MG TABLETS PO SCH (21:17)
[2022-10-26] MEDS: hydrOXYzine PAMOATE 25 MG CAPSULE (FP) PO PRN (21:18)
[2022-10-26] MEDS: MAG HYDROX/AL HYDROX/SIMETH 30 ML UNIT-DOSE CUP PO PRN (22:03)
[2022-10-27] MEDS: LEVOTHYROXINE NA 25 MCG TABLET (FP) PO SCH (07:45)
[2022-10-27] MEDS: metFORMIN HCL 500 MG TABLET (FP) PO SCH ×2 (07:46→17:07)
[2022-10-27] MEDS: PRENATAL VITAMINS W/ FOLIC ACID TABLET (FP) PO SCH (10:19)
[2022-10-27] MEDS: NICOTINE 7 MG/24 HOURS TOPICAL PATCH TD SCH (10:21)
[2022-10-27] MEDS: DIVALPROEX SODIUM 250 MG TABLET E.C. PO SCH (10:48)
[2022-10-27] MEDS: LISINOPRIL 20 MG TABLET PO SCH (10:57)
[2022-10-27] MEDS: hydrOXYzine PAMOATE 25 MG CAPSULE (FP) PO PRN (14:00)
[2022-10-27] MEDS: ATORVASTATIN CA 40 MG TABLET (FP) PO SCH (21:28)
[2022-10-27] MEDS: THIAMINE HCL 100 MG TABLET (FP) PO SCH (21:28)
[2022-10-27] MEDS: MELATONIN 5 MG TABLETS PO SCH (21:28)
[2022-10-27] MEDS: DIVALPROEX SODIUM 500 MG TABLET E.C. PO SCH (21:28)
[2022-10-28] MEDS: metFORMIN HCL 500 MG TABLET (FP) PO SCH ×2 (06:29→16:35)
[2022-10-28] MEDS: LEVOTHYROXINE NA 25 MCG TABLET (FP) PO SCH (06:29)
[2022-10-28] MEDS: LISINOPRIL 20 MG TABLET PO SCH (09:37)
[2022-10-28] MEDS: PRENATAL VITAMINS W/ FOLIC ACID TABLET (FP) PO SCH (09:37)
[2022-10-28] MEDS: DIVALPROEX SODIUM 250 MG TABLET E.C. PO SCH (09:38)
[2022-10-28] MEDS: NICOTINE 7 MG/24 HOURS TOPICAL PATCH TD SCH (09:38)
[2022-10-28] MEDS: THIAMINE HCL 100 MG TABLET (FP) PO SCH (21:28)
[2022-10-28] MEDS: hydrOXYzine PAMOATE 25 MG CAPSULE (FP) PO PRN (21:28)
[2022-10-28] MEDS: MELATONIN 5 MG TABLETS PO SCH (21:28)
[2022-10-28] MEDS: DIVALPROEX SODIUM 500 MG TABLET E.C. PO SCH (21:29)
[2022-10-28] MEDS: ATORVASTATIN CA 40 MG TABLET (FP) PO SCH (21:29)
[2022-10-29] MEDS: LEVOTHYROXINE NA 25 MCG TABLET (FP) PO SCH (07:41)
[2022-10-29] MEDS: metFORMIN HCL 500 MG TABLET (FP) PO SCH ×2 (07:41→17:10)
[2022-10-29] MEDS: LISINOPRIL 20 MG TABLET PO SCH (10:08)
[2022-10-29] MEDS: PRENATAL VITAMINS W/ FOLIC ACID TABLET (FP) PO SCH (10:08)
[2022-10-29] MEDS: DIVALPROEX SODIUM 250 MG TABLET E.C. PO SCH (13:23)
[2022-10-29] MEDS: MELATONIN 5 MG TABLETS PO SCH (21:39)
[2022-10-29] MEDS: hydrOXYzine PAMOATE 25 MG CAPSULE (FP) PO PRN (21:39)
[2022-10-29] MEDS: ATORVASTATIN CA 40 MG TABLET (FP) PO SCH (21:39)
[2022-10-29] MEDS: THIAMINE HCL 100 MG TABLET (FP) PO SCH (21:39)
[2022-10-29] MEDS: DIVALPROEX SODIUM 500 MG TABLET E.C. PO SCH (21:39)
[2022-10-30] MEDS: LEVOTHYROXINE NA 25 MCG TABLET (FP) PO SCH (06:36)
[2022-10-30] MEDS: metFORMIN HCL 500 MG TABLET (FP) PO SCH (06:36)
[2022-10-30 06:57] VITALS: RESP 20; TEMP 97.5
[2022-10-30] MEDS: PRENATAL VITAMINS W/ FOLIC ACID TABLET (FP) PO SCH (09:07)
[2022-10-30] MEDS: LISINOPRIL 20 MG TABLET PO SCH (09:07)
[2022-10-30] MEDS: DIVALPROEX SODIUM 250 MG TABLET E.C. PO SCH (09:07)
[2022-10-30 10:36] VITALS: BP 128/74; PULSE 64
== END 2022-10-30 09:53 | disposition home or self-care (01) | DRG 895 ==
LOC: YASAS 19:19 → Y3E 10-21 14:54
PROVIDERS: ADMIT Allergy & Immunology; ATTEND Allergy & Immunology
PROC: HZ42ZZZ Group Counseling for Substance Abuse Treatment, Cognitive-Behavioral (ICD-10-PCS; principal; 2022-10-21)
DX: F14.20 Cocaine dependence, uncomplicated (principal); F10.20 Alcohol dependence, uncomplicated; F17.210 Nicotine dependence, cigarettes, uncomplicated; F25.9 Schizoaffective disorder, unspecified; I10 Essential (primary) hypertension; E78.5 Hyperlipidemia, unspecified; E03.9 Hypothyroidism, unspecified; E11.9 Type 2 diabetes mellitus without complications; Z79.84 Long term (current) use of oral hypoglycemic drugs; Z86.59 Personal history of other mental and behavioral disorders; Z91.14 Patient's other noncompliance with medication regimen; Z88.8 Allergy status to other drugs, medicaments and biological substances
CPT/HCPCS: 36415; 80053; 81003; 82962; 84443; 85027; 86780; 86803; 87389; 87811; 93005; 93010; C9803-CS; U0003; U0005

== ENCOUNTER 2023-01-11 22:46 | Inpatient (IN) | payer OTHER ==
[2023-01-11 23:37] VITALS: BMI 24.9
[2023-01-12] MEDS ORDERED: IBUPROFEN 600 MG TABLET (FP) PO PRN (00:25)
[2023-01-12] MEDS ORDERED: ONDANSETRON *ODT* 4 MG TABLET SL PRN (00:25)
[2023-01-12] MEDS ORDERED: MAG HYDROX/AL HYDROX/SIMETH 30 ML UNIT-DOSE CUP PO PRN (00:25)
[2023-01-12] MEDS ORDERED: NICOTINE 10 MG CARTRIDGE (INHALER) IH PRN (00:25)
[2023-01-12] MEDS ORDERED: BENZONATATE 200 MG CAPSULE PO PRN (00:25)
[2023-01-12] MEDS ORDERED: IBUPROFEN 400 MG TABLET (FP) PO PRN (00:25)
[2023-01-12] MEDS ORDERED: guaiFENesin 600 MG TABLET.ER (FP) PO PRN (00:25)
[2023-01-12] MEDS ORDERED: LOPERAMIDE HCL 2 MG CAPSULE PO PRN (00:25)
[2023-01-12] MEDS ORDERED: NALOXONE HCL (KLOXXADO) 8 MG SPRAY NS PRN (00:25)
[2023-01-12] MEDS ORDERED: BENZOCAINE/MENTHOL (CHLORASEPTIC ) LOZENGE MM PRN (00:25)
[2023-01-12] MEDS ORDERED: METHOCARBAMOL 500 MG TABLET PO PRN (00:25)
[2023-01-12] MEDS ORDERED: MAGNESIUM HYDROX 2400MG/30ML ORAL SUSPENSION 30 ML CUP PO PRN (00:25)
[2023-01-12] MEDS ORDERED: NALOXONE HCL 0.4 MG/ML VIAL IM PRN (00:25)
[2023-01-12] MEDS ORDERED: POLYETHYLENE GLYCOL (HEALTHYLAX) 3350 17 GM PACKET PO PRN (00:25)
[2023-01-12] MEDS ORDERED: DICYCLOMINE HCL 10 MG CAPSULE PO PRN (00:25)
[2023-01-12] MEDS ORDERED: ACETAMINOPHEN 325 MG TABLET (FP) PO PRN (00:25)
[2023-01-12] MEDS: INSULIN SLIDING SCALE (NOVOLOG) 1 VIAL SQ SCH ×2 (06:15→16:52)
[2023-01-12] MEDS: PRENATAL VITAMINS W/ FOLIC ACID TABLET (FP) PO SCH (10:27)
[2023-01-12] MEDS: NICOTINE 21 MG/24 HOURS TOPICAL PATCH TD SCH (10:29)
[2023-01-12 11:52] LABS: HIV INTERPRETATION NEGATIVE (NEGATIVE)
[2023-01-12] MEDS: LISINOPRIL 20 MG TABLET PO SCH (12:39)
[2023-01-12] MEDS: LEVOTHYROXINE NA 75 MCG TABLET (FP) PO SCH (12:39)
[2023-01-12] MEDS: BISMUTH SUBSALICYLATE 524 MG/30 ML PO PRN (12:40)
[2023-01-12] MEDS: hydrOXYzine PAMOATE 25 MG CAPSULE (FP) PO PRN ×2 (13:50→22:35)
[2023-01-12] MEDS: metFORMIN HCL 500 MG TABLET (FP) PO SCH (16:53)
[2023-01-12] MEDS ORDERED: MELATONIN 5 MG TABLETS PO SCH (22:00)
[2023-01-12] MEDS ORDERED: THIAMINE HCL 100 MG TABLET (FP) PO SCH (22:00)
[2023-01-12] MEDS ORDERED: ATORVASTATIN CA 40 MG TABLET (FP) PO SCH (22:00)
[2023-01-13] MEDS: metFORMIN HCL 500 MG TABLET (FP) PO SCH (06:10)
[2023-01-13] MEDS: hydrOXYzine PAMOATE 25 MG CAPSULE (FP) PO PRN (06:12)
[2023-01-13 07:04] VITALS: RESP 18
[2023-01-13] MEDS: INSULIN SLIDING SCALE (NOVOLOG) 1 VIAL SQ SCH (07:29)
[2023-01-13 09:27] VITALS: TEMP 97.1
[2023-01-13] MEDS: LEVOTHYROXINE NA 75 MCG TABLET (FP) PO SCH (10:33)
[2023-01-13] MEDS: PRENATAL VITAMINS W/ FOLIC ACID TABLET (FP) PO SCH (10:33)
[2023-01-13] MEDS: NICOTINE 21 MG/24 HOURS TOPICAL PATCH TD SCH (10:33)
[2023-01-13] MEDS: LISINOPRIL 20 MG TABLET PO SCH (10:33)
[2023-01-13] MEDS: BISMUTH SUBSALICYLATE 524 MG/30 ML PO PRN (10:34)
[2023-01-13 11:06] LABS: POTASSIUM 4.3 mmol/L (3.5-5.1)
[2023-01-13 11:08] LABS: CALCIUM 8.8 mg/dL (8.5-10.1); HEMATOCRIT 40.7 % (35.4-49); HEMOGLOBIN 14.1 GM/dL (11.7-16.9); MCH 30.1 pg (25.7-33.7); MCHC 34.6 g/dl (32.0-35.9); MEAN CELL VOLUME 86.9 fl (80-96); MEAN PLT VOLUME 8.7 fl (7.5-11.1); PLATELET COUNT 204 10^3/uL (134-434); RBC 4.69 M/mm3 (4.00-5.60); RDW 13.9 % (11.9-15.9); WHITE BLOOD COUNT 7.2 K/mm3 (4.0-10.0)
[2023-01-13 11:09] LABS: ALBUMIN 3.4 g/dl (3.4-5.0); BLOOD UREA NITROGEN 8.4 mg/dL (7-18)
[2023-01-13 11:12] LABS: CREATININE 0.9 mg/dL (0.55-1.3)
[2023-01-13 11:14] LABS: BILIRUBIN,TOTAL 0.7 mg/dL (0.2-1); TOT PROT 6.9 g/dl (6.4-8.2)
[2023-01-13 13:06] VITALS: BP 141/79; PULSE 59
== END 2023-01-13 14:00 | disposition home or self-care (01) | DRG 897 ==
LOC: YASAS 22:46 → UNDOADMIN 01-12 02:09 → Y3N 01-12 02:09 → Y6N 01-12 02:16 → Y3N 01-12 02:16 → UNDODISIN 01-13 14:00
PROVIDERS: ADMIT Allergy & Immunology; ATTEND Surgery
PROC: HZ2ZZZZ Detoxification Services for Substance Abuse Treatment (ICD-10-PCS; principal; 2023-01-12)
DX: F11.23 Opioid dependence with withdrawal (principal); F14.20 Cocaine dependence, uncomplicated; F10.10 Alcohol abuse, uncomplicated; F17.210 Nicotine dependence, cigarettes, uncomplicated; F25.9 Schizoaffective disorder, unspecified; F32.A Depression, unspecified; I10 Essential (primary) hypertension; K21.9 Gastro-esophageal reflux disease without esophagitis; E78.00 Pure hypercholesterolemia, unspecified; E03.9 Hypothyroidism, unspecified; E11.9 Type 2 diabetes mellitus without complications; Z79.84 Long term (current) use of oral hypoglycemic drugs; Z88.8 Allergy status to other drugs, medicaments and biological substances
CPT/HCPCS: 36415; 80053; 82962; 85027; 86780; 87389; 87635

== ENCOUNTER 2023-04-06 20:43 | Inpatient (IN) | payer OTHER ==
[2023-04-06 21:19] VITALS: BMI 27.0
[2023-04-06] MEDS ORDERED: chlordiazePOXIDE HCL 25 MG CAPSULE PO ONE (21:52)
[2023-04-06] MEDS ORDERED: chlordiazePOXIDE HCL 25 MG CAPSULE PO PRN (21:52)
[2023-04-06] MEDS ORDERED: BENZONATATE 200 MG CAPSULE PO PRN (21:54)
[2023-04-06] MEDS ORDERED: LOPERAMIDE HCL 2 MG CAPSULE PO PRN (21:54)
[2023-04-06] MEDS ORDERED: POLYETHYLENE GLYCOL (HEALTHYLAX) 3350 17 GM PACKET PO PRN (21:54)
[2023-04-06] MEDS ORDERED: METHOCARBAMOL 500 MG TABLET PO PRN (21:54)
[2023-04-06] MEDS ORDERED: DICYCLOMINE HCL 10 MG CAPSULE PO PRN (21:54)
[2023-04-06] MEDS ORDERED: ONDANSETRON *ODT* 4 MG TABLET SL PRN (21:54)
[2023-04-06] MEDS ORDERED: IBUPROFEN 400 MG TABLET (FP) PO PRN (21:54)
[2023-04-06] MEDS ORDERED: NICOTINE POLACRILEX 2 MG GUM BUC PRN (21:54)
[2023-04-06] MEDS ORDERED: IBUPROFEN 600 MG TABLET (FP) PO PRN (21:54)
[2023-04-06] MEDS ORDERED: BISMUTH SUBSALICYLATE 524 MG/30 ML PO PRN (21:54)
[2023-04-06] MEDS ORDERED: NALOXONE HCL (KLOXXADO) 8 MG SPRAY NS PRN (21:54)
[2023-04-06] MEDS ORDERED: hydrOXYzine PAMOATE 25 MG CAPSULE (FP) PO PRN (21:54)
[2023-04-06] MEDS ORDERED: MAG HYDROX/AL HYDROX/SIMETH 30 ML UNIT-DOSE CUP PO PRN (21:54)
[2023-04-06] MEDS ORDERED: MAGNESIUM HYDROX 2400MG/30ML ORAL SUSPENSION 30 ML CUP PO PRN (21:54)
[2023-04-06] MEDS ORDERED: ACETAMINOPHEN 325 MG TABLET (FP) PO PRN (21:54)
[2023-04-06] MEDS ORDERED: NALOXONE HCL 0.4 MG/ML VIAL IM PRN (21:54)
[2023-04-06] MEDS ORDERED: BENZOCAINE/MENTHOL (CHLORASEPTIC ) LOZENGE MM PRN (21:54)
[2023-04-06] MEDS ORDERED: guaiFENesin 600 MG TABLET.ER (FP) PO PRN (21:54)
[2023-04-06] MEDS ORDERED: chlordiazePOXIDE HCL 25 MG CAPSULE ONE (22:16)
[2023-04-07] MEDS: ATORVASTATIN CA 40 MG TABLET (FP) PO SCH ×2 (00:34→22:29)
[2023-04-07] MEDS: MELATONIN 5 MG TABLETS PO SCH ×2 (00:35→22:29)
[2023-04-07] MEDS: THIAMINE HCL 100 MG TABLET (FP) PO SCH ×2 (00:35→22:29)
[2023-04-07] MEDS: chlordiazePOXIDE HCL 25 MG CAPSULE PO SCH ×5 (00:36→22:29)
[2023-04-07] MEDS: metFORMIN HCL 500 MG TABLET (FP) PO SCH ×2 (06:02→17:16)
[2023-04-07 09:55] LABS: POTASSIUM 3.8 mmol/L (3.5-5.1)
[2023-04-07 09:58] LABS: HEMOGLOBIN 14.6 GM/dL (11.7-16.9); MCH 28.7 pg (25.7-33.7); MCHC 32.5 g/dl (32.0-35.9); MEAN CELL VOLUME 88.3 fl (80-96); MEAN PLT VOLUME 9.4 fl (7.5-11.1); PLATELET COUNT 145 10^3/uL (134-434); RDW 14.3 % (11.9-15.9); WHITE BLOOD COUNT 4.8 K/mm3 (4.0-10.0)
[2023-04-07] MEDS ORDERED: LEVOTHYROXINE NA 75 MCG TABLET (FP) PO SCH ×2 (10:00→11:00)
[2023-04-07 10:04] LABS: CALCIUM 8.5 mg/dL (8.5-10.1)
[2023-04-07 10:05] LABS: ALBUMIN 3.7 g/dl (3.4-5.0); BLOOD UREA NITROGEN 10.6 mg/dL (7-18)
[2023-04-07 10:08] LABS: BILIRUBIN,TOTAL 0.3 mg/dL (0.2-1); TOT PROT 6.7 g/dl (6.4-8.2)
[2023-04-07] MEDS: PRENATAL VITAMINS W/ FOLIC ACID TABLET (FP) PO SCH (10:42)
[2023-04-07] MEDS: LISINOPRIL 20 MG TABLET PO SCH (10:42)
[2023-04-07] MEDS: NICOTINE 14 MG/24 HOURS TOPICAL PATCH TD SCH (10:42)
[2023-04-07] MEDS: OLANZapine 10 MG TABLET PO SCH (22:29)
[2023-04-08] MEDS: chlordiazePOXIDE HCL 25 MG CAPSULE PO SCH ×4 (05:55→22:25)
[2023-04-08] MEDS: metFORMIN HCL 500 MG TABLET (FP) PO SCH ×2 (06:13→17:19)
[2023-04-08] MEDS: LEVOTHYROXINE NA 25 MCG TABLET (FP) PO SCH (06:59)
[2023-04-08] MEDS: PRENATAL VITAMINS W/ FOLIC ACID TABLET (FP) PO SCH (10:34)
[2023-04-08] MEDS: LISINOPRIL 20 MG TABLET PO SCH (10:34)
[2023-04-08] MEDS: NICOTINE 14 MG/24 HOURS TOPICAL PATCH TD SCH (10:38)
[2023-04-08] MEDS: MELATONIN 5 MG TABLETS PO SCH (22:25)
[2023-04-08] MEDS: OLANZapine 10 MG TABLET PO SCH (22:25)
[2023-04-08] MEDS: ATORVASTATIN CA 40 MG TABLET (FP) PO SCH (22:25)
[2023-04-08] MEDS: THIAMINE HCL 100 MG TABLET (FP) PO SCH (22:25)
[2023-04-09] MEDS ORDERED: chlordiazePOXIDE HCL 10 MG CAPSULE PO PRN
[2023-04-09] MEDS: chlordiazePOXIDE HCL 10 MG CAPSULE PO SCH ×4 (05:51→22:46)
[2023-04-09] MEDS: metFORMIN HCL 500 MG TABLET (FP) PO SCH ×2 (06:27→17:03)
[2023-04-09] MEDS: LEVOTHYROXINE NA 25 MCG TABLET (FP) PO SCH (06:28)
[2023-04-09] MEDS: LISINOPRIL 20 MG TABLET PO SCH (10:45)
[2023-04-09] MEDS: PRENATAL VITAMINS W/ FOLIC ACID TABLET (FP) PO SCH (10:45)
[2023-04-09] MEDS: NICOTINE 14 MG/24 HOURS TOPICAL PATCH TD SCH (10:45)
[2023-04-09] MEDS: ATORVASTATIN CA 40 MG TABLET (FP) PO SCH (22:46)
[2023-04-09] MEDS: MELATONIN 5 MG TABLETS PO SCH (22:46)
[2023-04-09] MEDS: OLANZapine 10 MG TABLET PO SCH (22:46)
[2023-04-09] MEDS: THIAMINE HCL 100 MG TABLET (FP) PO SCH (22:46)
[2023-04-10] MEDS ORDERED: chlordiazePOXIDE HCL 10 MG CAPSULE PO SCH (05:00)
[2023-04-10] MEDS: metFORMIN HCL 500 MG TABLET (FP) PO SCH (06:11)
[2023-04-10] MEDS: LEVOTHYROXINE NA 25 MCG TABLET (FP) PO SCH (06:11)
[2023-04-10 09:03] VITALS: RESP 18
[2023-04-10] MEDS: PRENATAL VITAMINS W/ FOLIC ACID TABLET (FP) PO SCH (10:38)
[2023-04-10] MEDS: LISINOPRIL 20 MG TABLET PO SCH (10:38)
[2023-04-10] MEDS: NICOTINE 14 MG/24 HOURS TOPICAL PATCH TD SCH (10:38)
[2023-04-10 12:56] VITALS: BP 114/65; PULSE 69; TEMP 97.3
[2023-04-11] MEDS ORDERED: chlordiazePOXIDE HCL 10 MG CAPSULE PO ONE (05:00)
== END 2023-04-10 15:40 | disposition home or self-care (01) | DRG 896 ==
LOC: YASAS 20:43 → Y3N 22:37
PROVIDERS: ADMIT Allergy & Immunology; ATTEND Surgery
PROC: HZ2ZZZZ Detoxification Services for Substance Abuse Treatment (ICD-10-PCS; principal; 2023-04-06)
DX: F10.230 Alcohol dependence with withdrawal, uncomplicated (principal); U07.1 COVID-19; F14.20 Cocaine dependence, uncomplicated; F17.210 Nicotine dependence, cigarettes, uncomplicated; F25.9 Schizoaffective disorder, unspecified; F19.24 Other psychoactive substance dependence with psychoactive substance-induced mood disorder; E78.5 Hyperlipidemia, unspecified; I10 Essential (primary) hypertension; E03.9 Hypothyroidism, unspecified; E11.9 Type 2 diabetes mellitus without complications; Z79.84 Long term (current) use of oral hypoglycemic drugs; Z56.0 Unemployment, unspecified; Z59.02 Unsheltered homelessness; Z88.8 Allergy status to other drugs, medicaments and biological substances
CPT/HCPCS: 36415; 80053; 82962; 85027; 86780; 87635

== ENCOUNTER 2023-06-04 01:21 | Inpatient (IN) | payer OTHER ==
[2023-06-04 01:46] VITALS: BMI 29.0
[2023-06-04] MEDS ORDERED: BENZONATATE 200 MG CAPSULE PO PRN (01:59)
[2023-06-04] MEDS ORDERED: NALOXONE HCL 0.4 MG/ML VIAL IM PRN (01:59)
[2023-06-04] MEDS ORDERED: IBUPROFEN 600 MG TABLET (FP) PO PRN (01:59)
[2023-06-04] MEDS ORDERED: COLLOIDAL OATMEAL 1 BAR EACH TP PRN (01:59)
[2023-06-04] MEDS ORDERED: POLYETHYLENE GLYCOL (HEALTHYLAX) 3350 17 GM PACKET PO PRN (01:59)
[2023-06-04] MEDS ORDERED: IBUPROFEN 400 MG TABLET (FP) PO PRN (01:59)
[2023-06-04] MEDS ORDERED: ACETAMINOPHEN 325 MG TABLET (FP) PO PRN (01:59)
[2023-06-04] MEDS ORDERED: NICOTINE POLACRILEX 2 MG GUM BUC PRN (01:59)
[2023-06-04] MEDS ORDERED: MAGNESIUM HYDROX 2400MG/30ML ORAL SUSPENSION 30 ML CUP PO PRN (01:59)
[2023-06-04] MEDS ORDERED: guaiFENesin 600 MG TABLET.ER (FP) PO PRN (01:59)
[2023-06-04] MEDS ORDERED: LOPERAMIDE HCL 2 MG CAPSULE PO PRN (01:59)
[2023-06-04] MEDS ORDERED: hydrOXYzine PAMOATE 25 MG CAPSULE (FP) PO PRN (01:59)
[2023-06-04] MEDS ORDERED: NALOXONE HCL (KLOXXADO) 8 MG SPRAY NS PRN (01:59)
[2023-06-04] MEDS ORDERED: BENZOCAINE/MENTHOL (CHLORASEPTIC ) LOZENGE MM PRN (01:59)
[2023-06-04] MEDS: LEVOTHYROXINE NA 100 MCG TABLET (FP) PO SCH (07:05)
[2023-06-04] MEDS: metFORMIN HCL 500 MG TABLET (FP) PO SCH ×2 (07:05→17:27)
[2023-06-04] MEDS: PRENATAL VITAMINS W/ FOLIC ACID TABLET (FP) PO SCH (10:18)
[2023-06-04] MEDS: LISINOPRIL 20 MG TABLET PO SCH (10:18)
[2023-06-04] MEDS: NICOTINE 14 MG/24 HOURS TOPICAL PATCH TD SCH (10:19)
[2023-06-04 11:55] LABS: CHLORIDE 107 mmol/L (98-107); POTASSIUM 3.8 mmol/L (3.5-5.1); SODIUM 139 mmol/L (136-145)
[2023-06-04 11:56] LABS: HEMATOCRIT 41.2 % (35.4-49); HEMOGLOBIN 14.5 GM/dL (11.7-16.9); MCH 30.7 pg (25.7-33.7); MCHC 35.3 g/dl (32.0-35.9); MEAN CELL VOLUME 87.1 fl (80-96); MEAN PLT VOLUME 8.9 fl (7.5-11.1); PLATELET COUNT 159 10^3/uL (134-434); RBC 4.74 M/mm3 (4.00-5.60); RDW 14.8 % (11.9-15.9); WHITE BLOOD COUNT 8.9 K/mm3 (4.0-10.0)
[2023-06-04 12:04] LABS: EPI CELLS 9 /uL (0-25.1); HYALINE CASTS 1 /uL (0-3.1); PH,URINE 6.5 (5.0-8.0); URINE APPEARANCE CLEAR; URINE BACTERIA 48 /uL (0-1359); URINE BILIRUBIN NEGATIVE (NEGATIVE); URINE COLOR YELLOW; URINE GLUCOSE (UA) NEGATIVE (NEGATIVE); URINE KETONE TRACE (NEGATIVE); URINE LEUK ESTERASE TRACE (NEGATIVE); URINE NITRITE NEGATIVE (NEGATIVE); URINE PROTEIN NEGATIVE (NEGATIVE); URINE RBC 8 /uL (0-23.9); URINE WBC 33 /uL (0-25.8)
[2023-06-04 12:13] LABS: SYPHILIS W/ RPR CONF NON-REACTIVE (NONREACTIVE)
[2023-06-04 12:26] LABS: CALCIUM 8.8 mg/dL (8.5-10.1); GLUCOSE,RANDOM 102 mg/dL (74-106)
[2023-06-04 12:27] LABS: ALBUMIN 3.4 g/dl (3.4-5.0); ANION GAP 8 mmol/L (4-13); BLOOD UREA NITROGEN 17.1 mg/dL (7-18); CO2 24 mmol/L (21-32)
[2023-06-04 12:29] LABS: SGOT/AST 14 U/L (15-37); SGPT/ALT 21 U/L (13-61)
[2023-06-04 12:30] LABS: CREATININE 0.9 mg/dL (0.55-1.3)
[2023-06-04 12:31] LABS: BILIRUBIN,TOTAL 0.4 mg/dL (0.2-1); TOT PROT 6.4 g/dl (6.4-8.2)
[2023-06-04 12:32] LABS: ALK PHOS 62 U/L (45-117)
[2023-06-04] MEDS: THIAMINE HCL 100 MG TABLET (FP) PO SCH (21:24)
[2023-06-04] MEDS: MELATONIN 5 MG TABLETS PO SCH (21:24)
[2023-06-04] MEDS: ATORVASTATIN CA 40 MG TABLET (FP) PO SCH (21:24)
[2023-06-04] MEDS: OLANZapine 10 MG TABLET PO SCH (21:25)
[2023-06-04] MEDS: MAG HYDROX/AL HYDROX/SIMETH 30 ML UNIT-DOSE CUP PO PRN (21:53)
[2023-06-05] MEDS: metFORMIN HCL 500 MG TABLET (FP) PO SCH ×3 (06:53→16:56)
[2023-06-05] MEDS: LEVOTHYROXINE NA 100 MCG TABLET (FP) PO SCH (06:53)
[2023-06-05] MEDS ORDERED: TETANUS AND DIPHTHERIA TOXOID 0.5 ML DISP.SYRIN IM ONE (09:15)
[2023-06-05] MEDS ORDERED: RABIES VACCINE (PCEC)/PF 2.5 UNIT/VIAL IM ONE (09:15)
[2023-06-05] MEDS ORDERED: metFORMIN HCL 500 MG TABLET (FP) PO SCH (09:16)
[2023-06-05] MEDS: BACITRACIN 0.9 GM PACKET TP SCH (10:21)
[2023-06-05] MEDS: LISINOPRIL 20 MG TABLET PO SCH (10:21)
[2023-06-05] MEDS: NICOTINE 14 MG/24 HOURS TOPICAL PATCH TD SCH (10:21)
[2023-06-05] MEDS: PRENATAL VITAMINS W/ FOLIC ACID TABLET (FP) PO SCH (10:21)
[2023-06-05] MEDS ORDERED: DIPHTH,PERTUSS(ACELL),TET 0.5 ML DISP.SYRIN IM ONE (12:00)
[2023-06-05] MEDS: BACLOFEN 10 MG TABLET (FP) PO SCH ×2 (14:04→21:09)
[2023-06-05] MEDS: THIAMINE HCL 100 MG TABLET (FP) PO SCH (21:08)
[2023-06-05] MEDS: MELATONIN 5 MG TABLETS PO SCH (21:08)
[2023-06-05] MEDS: ATORVASTATIN CA 40 MG TABLET (FP) PO SCH (21:09)
[2023-06-05] MEDS: OLANZapine 10 MG TABLET PO SCH (21:09)
[2023-06-05] MEDS: MAG HYDROX/AL HYDROX/SIMETH 30 ML UNIT-DOSE CUP PO PRN (22:29)
[2023-06-06] MEDS: LEVOTHYROXINE NA 100 MCG TABLET (FP) PO SCH (06:33)
[2023-06-06] MEDS: BACLOFEN 10 MG TABLET (FP) PO SCH ×3 (06:33→21:23)
[2023-06-06] MEDS: metFORMIN HCL 500 MG TABLET (FP) PO SCH ×2 (06:33→16:29)
[2023-06-06] MEDS: BACITRACIN 0.9 GM PACKET TP SCH (10:44)
[2023-06-06] MEDS: LISINOPRIL 20 MG TABLET PO SCH (10:44)
[2023-06-06] MEDS: NICOTINE 14 MG/24 HOURS TOPICAL PATCH TD SCH (10:44)
[2023-06-06] MEDS: PRENATAL VITAMINS W/ FOLIC ACID TABLET (FP) PO SCH (10:44)
[2023-06-06] MEDS: OLANZapine 10 MG TABLET PO SCH (21:23)
[2023-06-06] MEDS: ATORVASTATIN CA 40 MG TABLET (FP) PO SCH (21:23)
[2023-06-06] MEDS: THIAMINE HCL 100 MG TABLET (FP) PO SCH (21:23)
[2023-06-06] MEDS: MELATONIN 5 MG TABLETS PO SCH (21:23)
[2023-06-07] MEDS: LEVOTHYROXINE NA 100 MCG TABLET (FP) PO SCH (06:49)
[2023-06-07] MEDS: BACLOFEN 10 MG TABLET (FP) PO SCH (06:49)
[2023-06-07] MEDS: metFORMIN HCL 500 MG TABLET (FP) PO SCH (06:49)
[2023-06-07 07:02] VITALS: BP 123/70; PULSE 58; RESP 16; TEMP 97.7
[2023-06-07] MEDS: LISINOPRIL 20 MG TABLET PO SCH (10:37)
[2023-06-07] MEDS: PRENATAL VITAMINS W/ FOLIC ACID TABLET (FP) PO SCH (10:37)
[2023-06-07] MEDS: BACITRACIN 0.9 GM PACKET TP SCH (10:37)
[2023-06-07] MEDS: NICOTINE 14 MG/24 HOURS TOPICAL PATCH TD SCH (10:37)
== END 2023-06-07 14:04 | disposition left against medical advice (07) | DRG 894 ==
LOC: YASAS 01:21 → Y5N 03:45 → Y3W 18:59
PROVIDERS: ADMIT Allergy & Immunology; ATTEND Psychiatry & Neurology Pain Medicine
PROC: HZ42ZZZ Group Counseling for Substance Abuse Treatment, Cognitive-Behavioral (ICD-10-PCS; principal; 2023-06-04)
DX: F10.20 Alcohol dependence, uncomplicated (principal); F14.20 Cocaine dependence, uncomplicated; F12.20 Cannabis dependence, uncomplicated; F17.210 Nicotine dependence, cigarettes, uncomplicated; F19.24 Other psychoactive substance dependence with psychoactive substance-induced mood disorder; I10 Essential (primary) hypertension; E78.5 Hyperlipidemia, unspecified; E03.9 Hypothyroidism, unspecified; E11.9 Type 2 diabetes mellitus without complications; Z79.84 Long term (current) use of oral hypoglycemic drugs; S51.851D Open bite of right forearm, subsequent encounter; W54.0XXD Bitten by dog, subsequent encounter; Z91.148 Patient's other noncompliance with medication regimen for other reason; Z88.8 Allergy status to other drugs, medicaments and biological substances
CPT/HCPCS: 36415; 80053; 80307; 81003; 82962; 85027; 86780; 86803; 87635; 90715; J0475

== ENCOUNTER 2023-06-05 12:46 | Emergency (ER) | payer OTHER ==
[2023-06-05 13:12] VITALS: BP 127/65; PULSE 68; RESP 18; TEMP 98; BMI 29.2
[2023-06-05] MEDS ORDERED: RABIES IMMUNE GLOBULIN 300 UNITS/1 ML VIAL IM ONE (13:33)
[2023-06-05] MEDS ORDERED: RABIES VACCINE (PCEC)/PF 2.5 UNIT/VIAL IM ONE ×3 (13:33→13:44)
[2023-06-05] MEDS ORDERED: AMOX TR/POT CLAV 875MG/125MG TABLETS (FP) PO ONE (13:33)
[2023-06-05] MEDS ORDERED: AMOX TR/POT CLAV 875MG/125MG TABLETS (FP) ONE (13:39)
[2023-06-05] MEDS ORDERED: RABIES IMMUNE GLOBULIN 300 UNITS/1 ML VIAL ONE (13:40)
== END 2023-06-05 15:18 | disposition home or self-care (01) ==
LOC: JER 12:46
PROC: 3E0234Z Introduction of Serum, Toxoid and Vaccine into Muscle, Percutaneous Approach (ICD-10-PCS; principal; 2023-06-05)
PROC: 3E0234Z Introduction of Serum, Toxoid and Vaccine into Muscle, Percutaneous Approach (ICD-10-PCS; 2023-06-05)
DX: S51.851A Open bite of right forearm, initial encounter (principal); Z29.14 Encounter for prophylactic rabies immune globulin; W54.0XXA Bitten by dog, initial encounter
CPT/HCPCS: 90375; 90675; 99284-25